=== PATIENT | female | born 1965 | race Caucasian/White ===

== ENCOUNTER 2020-10-16 07:45 | Inpatient (IN) | payer OTHER ==
[~2020-10-16] VITALS: Ht 165.1 cm; Wt 86.2 kg
[2020-10-16] MEDS ORDERED: BREO IH (09:26)
[2020-10-21] MEDS ORDERED: BREO ELLIPTA I1 EACH (10:53)
[2020-10-21] MEDS ORDERED: MAXIMUM D3325 MCG (10:53)
[2020-10-23] MEDS ORDERED: IBUPROFEN800 MG PO (07:03)
[2020-10-23] MEDS ORDERED: GABAPENTIN300 MG PO (07:03)
[2020-10-23] MEDS ORDERED: SIMETHICONE125 M1 PO (07:03)
== END 2020-10-23 08:14 | disposition home or self-care (01) | DRG 743 ==
LOC: OB/GYN 10-21 05:55 → O/R 10-21 05:55 → EDBD 10-21 07:45 → SURH 10-21 07:45 → OB/GYN 10-21 13:33
PROVIDERS: ADMIT Obstetrics & Gynecology; ATTEND Obstetrics & Gynecology
PROC: 0UT20ZZ Resection of Bilateral Ovaries, Open Approach (ICD-10-PCS; 2020-10-21)
PROC: 0UT70ZZ Resection of Bilateral Fallopian Tubes, Open Approach (ICD-10-PCS; 2020-10-21)
PROC: 0UT90ZZ Resection of Uterus, Open Approach (ICD-10-PCS; principal; 2020-10-21 12:45)
DX: D25.0 Submucous leiomyoma of uterus (principal); D25.1 Intramural leiomyoma of uterus; D25.2 Subserosal leiomyoma of uterus; N72 Inflammatory disease of cervix uteri; N80.0 Endometriosis of uterus; N83.8 Other noninflammatory disorders of ovary, fallopian tube and broad ligament; N93.9 Abnormal uterine and vaginal bleeding, unspecified; N83.00 Follicular cyst of ovary, unspecified side